=== PATIENT | female | born 1940 | race Caucasian/White ===

== ENCOUNTER → 2025-04-12 16:18 | Outpatient (REF) | payer MEDICARE, OTHER, SELFPAY | LOC: RAD 16:18 | PROVIDERS: ATTENDING PHYSICIAN Nurse Practitioner Primary Care | DX: J40 Bronchitis, not specified as acute or chronic (principal) | CPT/HCPCS: 71046 ==

== ENCOUNTER → 2025-04-30 07:10 | Outpatient (REF) | payer MEDICARE, OTHER, SELFPAY | LOC: RCS 07:10 | PROVIDERS: ATTENDING PHYSICIAN Nurse Practitioner Primary Care | DX: I35.0 Nonrheumatic aortic (valve) stenosis (principal); R94.31 Abnormal electrocardiogram [ECG] [EKG] | CPT/HCPCS: 93005; 93306 ==

== ENCOUNTER → 2025-05-02 09:19 | Outpatient (REF) | payer MEDICARE, OTHER, SELFPAY | LOC: RAD 09:19 | PROVIDERS: ATTENDING PHYSICIAN Nurse Practitioner Primary Care | DX: N28.1 Cyst of kidney, acquired (principal); K83.8 Other specified diseases of biliary tract | CPT/HCPCS: 76700 ==

== ENCOUNTER → 2025-05-13 15:29 | Outpatient (REF) | payer MEDICARE, OTHER, SELFPAY | LOC: RAD 15:29 | PROVIDERS: ATTENDING PHYSICIAN Nurse Practitioner Primary Care | DX: R05.3 Chronic cough (principal) | CPT/HCPCS: 71260; Q9967 ==

== ENCOUNTER → 2025-06-16 16:52 | Outpatient (REF) | payer MEDICARE, OTHER, SELFPAY | LOC: RAD 16:52 | PROVIDERS: ATTENDING PHYSICIAN Nurse Practitioner Primary Care | DX: M25.552 Pain in left hip (principal); M54.42 Lumbago with sciatica, left side | CPT/HCPCS: 72110; 73502 ==

== ENCOUNTER → 2025-06-22 13:13 | Outpatient (REF) | payer MEDICARE, OTHER, SELFPAY | LOC: HWRAD 13:13 | PROVIDERS: ATTENDING PHYSICIAN Anesthesiology Pain Medicine; FAMILY PHYSICIAN Nurse Practitioner Primary Care | DX: M54.16 Radiculopathy, lumbar region (principal); M96.1 Postlaminectomy syndrome, not elsewhere classified | CPT/HCPCS: 72131 ==

== ENCOUNTER → 2025-08-04 15:07 | Outpatient (REF) | payer MEDICARE, OTHER, SELFPAY | LOC: RAD 15:07 | PROVIDERS: ATTENDING PHYSICIAN Nurse Practitioner Family; FAMILY PHYSICIAN Nurse Practitioner Primary Care | DX: M25.472 Effusion, left ankle (principal) | CPT/HCPCS: 73610; 73630 ==

== ENCOUNTER → 2025-09-20 11:22 | Outpatient (REF) | payer MEDICARE, OTHER, SELFPAY | LOC: RAD 11:22 | PROVIDERS: ATTENDING PHYSICIAN Nurse Practitioner Primary Care | DX: N28.1 Cyst of kidney, acquired (principal); K83.8 Other specified diseases of biliary tract | CPT/HCPCS: 74176 ==